=== PATIENT | female | born 1960 | race Caucasian/White ===

== ENCOUNTER → 2016-09-29 | Outpatient (CLI) | payer OTHER, SELFPAY ==
[~2016-09-29] VITALS: Ht 157.5 cm; Wt 56.7 kg
[~2016-09-29] MED LIST: CARAFATE1 GM PO; GLUCOPHAGE1000 MG PO; HYDRALAZINE HCL25 MG PO; LIPITOR TAB 2020 MG PO; LOPRESSOR100 MG PO; OMEPRAZOLE20 MG PO; PROTONIX40 MG PO; ZESTRIL 40 MG T40 MG PO
== END ==
LOC: OPSV 12:00
DX: D50.9 Iron deficiency anemia, unspecified (principal)
CPT/HCPCS: 96365; J1756; J7050

== ENCOUNTER → 2016-10-02 | Outpatient (CLI) | payer OTHER, SELFPAY ==
[~2016-10-02] VITALS: Ht 157.5 cm; Wt 83.9 kg
== END ==
LOC: OPSV 12:00
DX: D50.9 Iron deficiency anemia, unspecified (principal); Z98.84 Bariatric surgery status
CPT/HCPCS: 96365; J1756; J7050

== ENCOUNTER → 2016-10-06 | Outpatient (CLI) | payer OTHER, SELFPAY ==
[~2016-10-06] VITALS: Ht 157.5 cm; Wt 84.0 kg
== END ==
LOC: OPSV 11:00
DX: D50.9 Iron deficiency anemia, unspecified (principal); Z88.1 Allergy status to other antibiotic agents
CPT/HCPCS: 96365; J1756; J7050

== ENCOUNTER → 2016-10-09 | Outpatient (CLI) | payer OTHER, SELFPAY ==
[~2016-10-09] VITALS: Ht 157.5 cm; Wt 83.9 kg
== END ==
LOC: OPSV 11:41
DX: D50.9 Iron deficiency anemia, unspecified (principal)
CPT/HCPCS: 96365; J1756; J7050

== ENCOUNTER → 2016-10-14 | Outpatient (CLI) | payer OTHER, SELFPAY ==
[2016-10-14 14:20] LABS: HEMOGLOBIN 11.6 gm/dl (12.3-15.3); RED BLOOD COUNT 4.46 M/UL (4.00-5.10); WHITE BLOOD COUNT 7.6 K/UL (4.5-11.0)
== END ==
LOC: LAB 13:46
PROVIDERS: Family Medicine
DX: D50.9 Iron deficiency anemia, unspecified (principal)
CPT/HCPCS: 36415; 82728; 83540; 83550; 85025

== ENCOUNTER → 2016-12-17 | Outpatient (CLI) | payer OTHER, SELFPAY ==
[2016-12-17 12:21] LABS: HEMOGLOBIN 12.3 gm/dl (12.3-15.3); RED BLOOD COUNT 4.72 M/UL (4.00-5.10); WHITE BLOOD COUNT 9.5 K/UL (4.5-11.0)
[2016-12-17 12:36] LABS: BUN/CREATININE RATIO 30 (0-10)
== END ==
LOC: LAB 11:37
PROVIDERS: Family Medicine
DX: D50.9 Iron deficiency anemia, unspecified (principal); E78.5 Hyperlipidemia, unspecified; E11.9 Type 2 diabetes mellitus without complications; E53.8 Deficiency of other specified B group vitamins; Z98.84 Bariatric surgery status
CPT/HCPCS: 36415; 80053; 80061; 82043; 82570; 82607; 82728; 83036; 83540; 83550; 85025

== ENCOUNTER → 2020-08-01 | Outpatient (CLI) | payer OTHER ==
[~2020-08-01] MED LIST changes: +ATORVASTATIN CA20 MG PO; +AUGMENTIN 875-1 EACH PO; +BARIATRIC MV-I1 EACH PO; +CARAFATE 1 GM TA1 GM PO; +LISINOPRIL40 MG PO; +METFORMIN HCL500 MG PO; +METOPROLOL TART25 MG PO; +VITAMIN D325 MC6 PO
== END ==
LOC: HEART 5 09:30
DX: I11.9 Hypertensive heart disease without heart failure (principal); I08.0 Rheumatic disorders of both mitral and aortic valves; R93.1 Abnormal findings on diagnostic imaging of heart and coronary circulation
CPT/HCPCS: 93306

== ENCOUNTER → 2020-08-10 | Outpatient (CLI) | payer OTHER | LOC: EXRD 07-19 10:30 → KOH-I 07-31 10:30 | DX: R79.89 Other specified abnormal findings of blood chemistry (principal); Z90.49 Acquired absence of other specified parts of digestive tract | CPT/HCPCS: 76700 ==

== ENCOUNTER → 2021-01-07 | Outpatient (CLI) | payer OTHER | LOC: EXRD 09:33 | DX: M54.5 Low back pain (principal); G89.29 Other chronic pain; M51.36 Other intervertebral disc degeneration, lumbar region | CPT/HCPCS: 72110 ==

== ENCOUNTER 2021-08-01 14:34 | Emergency (ER) | payer OTHER ==
[~2021-08-01] VITALS: Ht 157.5 cm; Wt 72.6 kg
[2021-08-01 15:38] LABS: HEMOGLOBIN 10.9 gm/dl (12.3-15.3); RED BLOOD COUNT 4.11 M/UL (4.00-5.10); WHITE BLOOD COUNT 10.9 K/UL (4.5-11.0)
[2021-08-01 16:10] LABS: BUN/CREATININE RATIO 19 (0-10)
== END 2021-08-01 20:45 | disposition home or self-care (01) ==
LOC: ER1 14:34
PROVIDERS: Physician Assistant Medical
DX: E11.40 Type 2 diabetes mellitus with diabetic neuropathy, unspecified (principal); E11.621 Type 2 diabetes mellitus with foot ulcer; L97.529 Non-pressure chronic ulcer of other part of left foot with unspecified severity; E11.69 Type 2 diabetes mellitus with other specified complication; M86.9 Osteomyelitis, unspecified; I10 Essential (primary) hypertension; Z79.84 Long term (current) use of oral hypoglycemic drugs
CPT/HCPCS: 73630; 73700; 80053; 83605; 85025; 85652; 86140; 87040; 96374; 96375; 99284; J0696; J0875; J7060

== ENCOUNTER → 2021-09-04 | Outpatient (CLI) | payer OTHER ==
[2021-09-04 12:55] LABS: HEMOGLOBIN 8.3 gm/dl (12.3-15.3); RED BLOOD COUNT 3.15 M/UL (4.00-5.10); WHITE BLOOD COUNT 9.9 K/UL (4.5-11.0)
[2021-09-05 08:14] LABS: A/G RATIO 1.7 (1.2-2.2); ALKALINE PHOSPHATASE, S 57 IU/L (44-121); ALT (SGPT) 12 IU/L (0-32); AST (SGOT) 17 IU/L (0-40); BILIRUBIN, TOTAL <0.2 mg/dL (0.0-1.2); BUN 13 mg/dL (8-27); BUN/CREATININE RATIO 16 (12-28); CALCIUM, SERUM 9.2 mg/dL (8.7-10.3); CARBON DIOXIDE, TOTAL 21 mmol/L (20-29); CHLORIDE, SERUM 101 mmol/L (96-106); CHOLESTEROL, TOTAL 134 mg/dL (100-199); CREATININE, SERUM 0.82 mg/dL (0.57-1.00); EGFR IF AFRICN AM 89 (>59); EGFR IF NONAFRICN AM 77 (>59); FERRITIN 8 ng/mL (15-150); GLOBULIN, TOTAL 2.3 g/dL (1.5-4.5); GLUCOSE, SERUM 80 mg/dL (65-99); HDL CHOLESTEROL 46 mg/dL (>39); IRON BIND.CAP.(TIBC) 353 ug/dL (250-450); IRON SATURATION 7 % (15-55); IRON, SERUM 24 ug/dL (27-139); LDL CHOLESTEROL CALC 68 mg/dL (0-99); LDL/HDL RATIO 1.5 ratio (0.0-3.2); POTASSIUM, SERUM 5.5 mmol/L (3.5-5.2); PROTEIN, TOTAL, SERUM 6.2 g/dL (6.0-8.5); SODIUM, SERUM 138 mmol/L (134-144); T. CHOL/HDL RATIO 2.9 ratio (0.0-4.4); TRIGLYCERIDES 111 mg/dL (0-149); UIBC 329 ug/dL (118-369); VITAMIN D, 25-HYDROXY 27.2 ng/mL (30.0-100.0)
== END ==
LOC: MAMO 08-22 14:00
PROVIDERS: Family Medicine
DX: Z12.31 Encounter for screening mammogram for malignant neoplasm of breast (principal); D50.9 Iron deficiency anemia, unspecified; E55.9 Vitamin D deficiency, unspecified; E78.5 Hyperlipidemia, unspecified; I10 Essential (primary) hypertension; E11.9 Type 2 diabetes mellitus without complications; Z98.84 Bariatric surgery status; Z79.899 Other long term (current) drug therapy
CPT/HCPCS: 36415; 77063; 77067; 80053; 80061; 82570; 82607; 82728; 83540; 83550; 83735; 84156; 85025; 85045

== ENCOUNTER → 2021-10-16 | Outpatient (CLI) | payer OTHER ==
[2021-10-16 11:40] LABS: HEMOGLOBIN 8.4 gm/dl (12.3-15.3); RED BLOOD COUNT 3.57 M/UL (4.00-5.10); WHITE BLOOD COUNT 9.2 K/UL (4.5-11.0)
[2021-10-16 11:52] LABS: BUN/CREATININE RATIO 25 (0-10)
== END ==
LOC: LAB 10:44
PROVIDERS: Family Medicine
DX: D50.9 Iron deficiency anemia, unspecified (principal); E87.5 Hyperkalemia
CPT/HCPCS: 36415; 80048; 82728; 83540; 83550; 85025; 85045

== ENCOUNTER → 2021-10-18 | Outpatient (CLI) | payer OTHER ==
[~2021-10-18] VITALS: Ht 160 cm; Wt 73.0 kg
== END ==
LOC: OPSV 12:15
DX: D50.9 Iron deficiency anemia, unspecified (principal); R63.4 Abnormal weight loss
CPT/HCPCS: 96365; J1756

== ENCOUNTER → 2021-11-13 | Day surgery (SDC) | payer OTHER ==
[~2021-11-13] MED LIST changes: +METFORMIN HCL1000 MG PO
== END | disposition home or self-care (01) ==
LOC: OR 07:30
DX: D50.9 Iron deficiency anemia, unspecified (principal); Z98.84 Bariatric surgery status; E66.3 Overweight; I10 Essential (primary) hypertension; Z86.010 Personal history of colon polyps; E11.40 Type 2 diabetes mellitus with diabetic neuropathy, unspecified; E78.00 Pure hypercholesterolemia, unspecified; Z88.8 Allergy status to other drugs, medicaments and biological substances; Z79.84 Long term (current) use of oral hypoglycemic drugs; Z68.29 Body mass index [BMI] 29.0-29.9, adult; Z20.822 Contact with and (suspected) exposure to COVID-19; Z53.29 Procedure and treatment not carried out because of patient's decision for other reasons
CPT/HCPCS: 82962; J7040

== ENCOUNTER → 2021-11-19 | Outpatient (CLI) | payer OTHER ==
[2021-11-19 13:00] LABS: HEMOGLOBIN 10.4 gm/dl (12.3-15.3); RED BLOOD COUNT 4.3 M/UL (4.00-5.10); WHITE BLOOD COUNT 9.6 K/UL (4.5-11.0)
== END ==
LOC: LAB 12:13
PROVIDERS: Family Medicine
DX: D50.9 Iron deficiency anemia, unspecified (principal)
CPT/HCPCS: 36415; 82728; 83540; 83550; 85025; 85045